=== PATIENT | female | born 1935 | race Caucasian/White ===

== ENCOUNTER 2016-11-18 11:31 | Emergency (ER) | payer MEDICARE, BC, MEDICAID ==
[2016-11-18] MEDS ORDERED: Ketorolac 30 MG/ML SDV IM ONE (12:37)
--- NOTE | 2016-11-18 12:41 | EDM.PDOC ---
ED HPI Trauma - General Chief Complaint: Lower Extremity Injury/Pain Stated Complaint: ON GOING LEG PAIN RIGHT SIDE Time Seen by Provider: 11/18/16 12:30 Source: Reports: Patient, Family, RN notes reviewed History Limitations: Reports: No limitations - History of Present Illness INITIAL COMMENTS - FREE TEXT/NARRATIVE: 81-year-old female presents emergency department today complaining of right hip pain, she has been evaluated by her primary care physician x-rays performed last week show narrowing of the joint space, has had pain medication and gabapentin and Ultram with minimal relief she states the pain has increasingly gotten worse and she does have shooting pains down into her foot the pain is located predominantly in her buttocks and the lateral aspect of her hip Allergies/ADRs: Allergies adhesive tape Allergy (Verified 11/18/16 12:01) Other hydrocodone [From Vicodin] Allergy (Verified 11/18/16 12:01) Other morphine Allergy (Verified 11/18/16 12:01) Hallucinations venom-honey bee [bee venom (honey bee)] Allergy (Verified 11/18/16 12:01) Anaphylactic Shock Home Medications: Ambulatory Orders Alendronate [Fosamax] 70 mg PO Q7D 04/21/14 [Confirmed 05/23/14] Donepezil HCl [Donepezil HCl] 10 mg PO DAILY 04/21/14 [Confirmed 05/23/14] Folic Acid [Folic Acid] 1 mg PO DAILY 04/21/14 [Confirmed 05/23/14] Iron,Carbonyl/Ascorbic Acid [Vitron-C Tablet] 1 tab PO TID 04/21/14 [Confirmed 05/23/14] Metoprolol Tartrate [Lopressor] 12.5 mg PO BID 04/21/14 [Confirmed 05/23/14] Mirtazapine [Remeron] 7.5 mg PO BEDTIME 04/21/14 [Confirmed 05/23/14] RABEprazole Sodium [Rabeprazole Sodium] 20 mg PO DAILY 04/21/14 [Confirmed 05/23] Simvastatin [Simvastatin] 20 mg PO BEDTIME 04/21/14 [Confirmed 05/23/14] Solifenacin [Vesicare] 10 mg PO DAILY 04/21/14 [Confirmed 05/23/14] metFORMIN [Glucophage] 500 mg PO BID 04/21/14 [Confirmed 05/23/14] Aspirin/Calcium Carbonate/Mag [Aspirin Buffered 325 mg Tab] 325 mg PO DAILY [Confirmed 05/23/14] Calcium Citrate/Vitamin D3 [Calcium Citrate + Caplet] 1 tab PO DAILY 05/23/14 [ Confirmed 05/23/14] Cholecalciferol (Vitamin D3) [Vitamin D3] 1 tab PO DAILY 05/23/14 [Confirmed ] Citalopram Hydrobromide [Celexa] 20 mg PO DAILY 05/23/14 [Confirmed 05/23/14] Multivitamin [One Daily Multivitamin] 1 tab CHEW BID 05/23/14 [Confirmed ] Vitamin B Complex 1 tab PO DAILY 05/23/14 [Confirmed 05/23/14] Iron,Carbonyl/Ascorbic Acid [Vitron-C Tablet] 1 tab PO DAILY 04/16/16 Magnesium Oxide [Magnesium] 400 mg PO DAILY 04/16/16 Cyanocobalamin (Vitamin B12) [Vitamin B12] 1,000 mcg SL DAILY 04/25/16 [ Confirmed 04/25/16] Memantine HCl [Namenda Xr] 21 mg PO DAILY 04/25/16 [Confirmed 04/25/16] Past Medical History HEENT History: Reports: Impaired vision Cardiovascular History: Reports: Heart valve replacement, Hypertension Respiratory History: Reports: Pneumonia, recurrent Gastrointestinal History: Reports: Other (see below) Other Gastrointestinal History: change in bowels recently Genitourinary History: Reports: UTI, recurrent 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: Musculoskeletal History: Reports: Arthritis, Back pain, chronic Neurological History: Reports: Vertigo Endocrine/Metabolic History: Reports: Diabetes, type II, Vitamin D deficiency Hematologic History: Reports: B12 deficiency, Folic acid - Infectious Disease History Infectious Disease History: Reports: Chicken pox, Herpes, Measles, Mumps - Past Surgical History Head Surgeries/Procedures: Reports: None HEENT Surgical History: Reports: None Cardiovascular Surgical History: Reports: Valve replacement Respiratory Surgical History: Reports: None GI Surgical History: Reports: Bariatric procedure, Colonoscopy Female Surgical History: Reports: None Endocrine Surgical History: Reports: None Neurological Surgical History: Reports: None Musculoskeletal Surgical History: Reports: Carpal tunnel Dermatological Surgical History: Reports: None Social & Family History - Tobacco Use Smoking Status *Q: Former Smoker Years of Tobacco use: 30 Packs/Tins Daily: 3 Used Tobacco, but Quit: Yes Month Tobacco Last Used: 08/1979 Second Hand Smoke Exposure: No - Alcohol Use Days Per Week of Alcohol Use: 0 - Recreational Drug Use Recreational Drug Use: No Review of Systems - Review of Systems Review Of Systems: See Below Constitutional: Denies: fever Eyes: Reports: no symptoms Ears: Reports: no symptoms Nose: Reports: no symptoms Mouth/Throat: Reports: no symptoms Respiratory: Reports: No Symptoms Cardiovascular: Reports: no symptoms GI/Abdominal: Reports: No symptoms Genitourinary: Reports: no symptoms Musculoskeletal: Reports: joint pain (Right hip) Neurological: Reports: Tingling (Right foot) Trauma Exam - Physical Exam Exam: See Below Text/Narrative:: Examination of the right hip she is tender to palpation over the greater trochanter on the right side as well as in the buttocks region right side I cannot elicit pain with flexion or extension of the hip or internal or external rotation. Examination of the back I cannot elicit any tenderness to palpation spine or paraspinally Exam Limited By: No limitations General Appearance: Reports: alert, WD/WN, no apparent distress Respiratory Exam: Reports: no respiratory distress Course - Vital Signs Last Recorded V/S: Last Vital Signs Temp 97.3 F 11/18/16 12:10 Pulse 68 11/18/16 14:02 Resp 16 11/18/16 14:02 BP 114/57 L 11/18/16 14:02 Pulse Ox 97 11/18/16 14:02 - Orders/Labs/Meds Labs: Laboratory Tests 11/18/16 11/18/16 11/18/16 Range/Units 12:43 12:43 12:43 WBC 4.8 (4.5-11.0) K/uL RBC 3.62 (3.30-5.50) M/uL Hgb 11.5 L (12.0-15.0) g/dL Hct 36.0 (36.0-48.0) % MCV 99 H (80-98) fL MCH 32 H (27-31) pg MCHC 32 (32-36) % Plt Count 173 (150-400) K/uL Neut % (Auto) 66 (36-66) % Lymph % (Auto) 21 L (24-44) % [place] % (Auto) 8 H (2-6) % Eos % (Auto) 4 (2-4) % Baso % (Auto) 1 (0-1) % ESR 14 (0-25) mm/hr Sodium (140-148) mmol/L Potassium (3.6-5.2) mmol/L Chloride (100-108) mmol/L Carbon Dioxide (21-32) mmol/L Anion Gap (5.0-14.0) mmol/L BUN (7-18) mg/dL Creatinine (0.6-1.0) mg/dL Est Cr Clr Drug Dosing mL/min Estimated GFR (MDRD) (>60) Glucose (74-106) mg/dL Calcium (8.5-10.1) mg/dL C-Reactive Protein 0.11 (0.0-0.3) mg/dL 11/18/16 Range/Units 12:43 WBC (4.5-11.0) K/uL RBC (3.30-5.50) M/uL Hgb (12.0-15.0) g/dL Hct (36.0-48.0) % MCV (80-98) fL MCH (27-31) pg MCHC (32-36) % Plt Count (150-400) K/uL Neut % (Auto) (36-66) % Lymph % (Auto) (24-44) % [place] % (Auto) (2-6) % Eos % (Auto) (2-4) % Baso % (Auto) (0-1) % ESR (0-25) mm/hr Sodium 145 (140-148) mmol/L Potassium 3.9 (3.6-5.2) mmol/L Chloride 106 (100-108) mmol/L Carbon Dioxide 30 (21-32) mmol/L Anion Gap 8.6 (5.0-14.0) mmol/L BUN 21 H (7-18) mg/dL Creatinine 0.7 (0.6-1.0) mg/dL Est Cr Clr Drug Dosing 56.27 mL/min Estimated GFR (MDRD) > 60 (>60) Glucose 93 (74-106) mg/dL Calcium 8.5 D (8.5-10.1) mg/dL C-Reactive Protein (0.0-0.3) mg/dL Meds: Medications Discontinued Medications Generic Name Dose Route Start Last Admin Trade Name Freq PRN Reason Stop Dose Admin Bupivacaine HCl 10 ml 03/27/17 13:49 11/18/16 15:03 Sensorcaine-Mpf 0.25% INJECT 11/18/16 13:50 10 ml ONETIME ONE Administration Ketorolac Tromethamine 30 mg 11/18/16 12:37 11/18/16 12:49 Toradol IM 11/18/16 12:38 30 mg ONETIME ONE Administration Triamcinolone Acetonide 40 mg 11/18/16 13:49 11/18/16 15:03 Kenalog-40 INJECT 11/18/16 13:50 40 mg ASDIRECTED PRN Administration Pain Triamcinolone Acetonide 40 mg 11/18/16 13:50 11/18/16 15:03 Kenalog-40 INJECT 11/18/16 13:51 40 mg ASDIRECTED PRN Administration Pain Departure - Departure Time of Disposition: 15:07 Disposition: Home, Self-Care 01 Condition: good Clinical Impression: Trochanteric bursitis, right hip Forms: ED Department Discharge Additional Instructions: please followup with your primary care provider within the next 7-10 days for reevaluation which may include an MRI of the right hip, call or return to the emergency department worsening of symptoms - Assessment/Plan Plan: Assessment Acuity = acute Site and laterality = right trochanteric bursitis Etiology = unclear etiology Manifestations = pain Location of injury = home Lab values = CBC, BMP, sedimentation rate, CRP within normal limits Plan consultants orthopedics Dr. Gordillo from orthopedics evaluated the patient in the ED provided a steroid injection please see his procedure note for details recommend she followup with primary care for MRI and further evaluation Patient was in agreement with the plan all questions were answered, they were instructed to return to the emergency department or call for worsening symptoms. This note was dictated using [employer] voice recognition software please call with any questions.
[2016-11-18] MEDS ORDERED: Triamcinolone Acetonide 40 MG/ML 1 ML MDV INJECT PRN ×2 (13:49→13:50)
[2016-11-18] MEDS ORDERED: Bupivacaine 0.25% 10 ML SDV INJECT ONE (13:49)
[2016-11-18 14:03] VITALS: BP 114/57
[2016-11-18] MEDS ORDERED: HYDROmorphone 1 MG/ML Syringe IM ONE (15:27)
--- NOTE | 2016-11-18 17:13 | PCM.CONS ---
H&P History of Present Illness - General Date of Service: 11/18/16 Source of Information: Patient History Limitations: Reports: No limitations - History of Present Illness Onset of Symptoms: Reports: gradual Location: Reports: lower extremity, right Quality: Reports: Ache, Burning, Dull, Pressure, Stabbing, Throbbing Severity: moderate Improves with: Reports: None Worsens with: Reports: Movement Right Hip Pain Score (Numeric/FACES): 10 - Related Data Allergies/Adverse Reactions: Allergies Allergy/AdvReac Type Severity Reaction Status Date / Time venom-honey bee Allergy Severe Anaphylactic Verified 11/18/16 15:09 [bee venom (honey bee)] Shock adhesive tape Allergy Other Verified 11/18/16 12:01 hydrocodone [From Vicodin] Allergy Other Verified 11/18/16 16:52 morphine Allergy Hallucinati Verified 11/18/16 12:01 ons Home Medications: Home Meds Alendronate [Fosamax] 70 mg PO Q7D 04/21/14 [History] Donepezil HCl [Donepezil HCl] 10 mg PO DAILY 04/21/14 [History] Folic Acid [Folic Acid] 1 mg PO DAILY 04/21/14 [History] Iron,Carbonyl/Ascorbic Acid [Vitron-C Tablet] 1 tab PO TID 04/21/14 [History] Metoprolol Tartrate [Lopressor] 12.5 mg PO BID 04/21/14 [History] Mirtazapine [Remeron] 7.5 mg PO BEDTIME 04/21/14 [History] RABEprazole Sodium [Rabeprazole Sodium] 20 mg PO DAILY 04/21/14 [History] Simvastatin [Simvastatin] 20 mg PO BEDTIME 04/21/14 [History] Solifenacin [Vesicare] 10 mg PO DAILY 04/21/14 [History] metFORMIN [Glucophage] 500 mg PO BID 04/21/14 [History] Aspirin/Calcium Carbonate/Mag [Aspirin Buffered 325 mg Tab] 325 mg PO DAILY [History] Calcium Citrate/Vitamin D3 [Calcium Citrate + Caplet] 1 tab PO DAILY 05/23/14 [ History] Cholecalciferol (Vitamin D3) [Vitamin D3] 1 tab PO DAILY 05/23/14 [History] Citalopram Hydrobromide [Celexa] 20 mg PO DAILY 05/23/14 [History] Multivitamin [One Daily Multivitamin] 1 tab CHEW BID 05/23/14 [History] Vitamin B Complex 1 tab PO DAILY 05/23/14 [History] Iron,Carbonyl/Ascorbic Acid [Vitron-C Tablet] 1 tab PO DAILY 04/16/16 [History] Magnesium Oxide [Magnesium] 400 mg PO DAILY 04/16/16 [History] Cyanocobalamin (Vitamin B12) [Vitamin B12] 1,000 mcg SL DAILY 04/25/16 [History] Memantine HCl [Namenda Xr] 21 mg PO DAILY 04/25/16 [History] Past Medical History HEENT History: Reports: Impaired vision Cardiovascular History: Reports: Heart valve replacement, Hypertension Respiratory History: Reports: Pneumonia, recurrent Gastrointestinal History: Reports: Other (see below) Other Gastrointestinal History: change in bowels recently Genitourinary History: Reports: UTI, recurrent 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: Musculoskeletal History: Reports: Arthritis, Back pain, chronic Neurological History: Reports: Vertigo Endocrine/Metabolic History: Reports: Diabetes, type II, Vitamin D deficiency Hematologic History: Reports: B12 deficiency, Folic acid - Infectious Disease History Infectious Disease History: Reports: Chicken pox, Herpes, Measles, Mumps - Past Surgical History Head Surgeries/Procedures: Reports: None HEENT Surgical History: Reports: None Cardiovascular Surgical History: Reports: Valve replacement Respiratory Surgical History: Reports: None GI Surgical History: Reports: Bariatric procedure, Colonoscopy Female Surgical History: Reports: None Endocrine Surgical History: Reports: None Neurological Surgical History: Reports: None Musculoskeletal Surgical History: Reports: Carpal tunnel Dermatological Surgical History: Reports: None Social & Family History - Tobacco Use Smoking Status *Q: Former Smoker Years of Tobacco use: 30 Packs/Tins Daily: 3 Used Tobacco, but Quit: Yes Month Tobacco Last Used: 08/1979 Second Hand Smoke Exposure: No - Alcohol Use Days Per Week of Alcohol Use: 0 - Recreational Drug Use Recreational Drug Use: No H&P Review of Systems - Review of Systems: Review Of Systems: See Below General: Reports: no symptoms HEENT: Reports: no symptoms Pulmonary: Reports: No Symptoms Cardiovascular: Reports: no symptoms Gastrointestinal: Reports: No symptoms Genitourinary: Reports: no symptoms Musculoskeletal: Reports: joint pain, joint swelling, muscle pain, muscle stiffness Skin: Reports: no symptoms Psychiatric: Reports: no symptoms Neurological: Reports: No Symptoms Hematologic/Lymphatic: Reports: no symptoms Immunologic: Reports: no symptoms Exam - Exam Exam: See Below - Vital Signs Vital Signs: Last Vital Signs Temp 97.3 F 11/18/16 12:10 Pulse 68 11/18/16 14:02 Resp 16 11/18/16 14:02 BP 114/57 L 11/18/16 14:02 Pulse Ox 97 11/18/16 14:02 Weight: 126 lb - Exam General: alert, oriented HEENT: PERRLA, Conjunctiva clear, EACs clear Neck: supple, trachea midline Extremities: normal inspection Peripheral Pulses: 2+: dorsalis pedis (R) Skin: warm, dry, intact Neuro Extensive - Mental Status: alert, oriented x3 Psychiatric: alert Physical Exam Comments:: physical examination of right lower extremity shows point tenderness to palpation over the right greater trochanter.the patient also states that she does have pain from time to time radiating down the right leg. - Patient Data Lab Results last 24 hrs: Laboratory Results - last 24 hr 11/18/16 11/18/16 11/18/16 Range/Units 12:43 12:43 12:43 WBC 4.8 (4.5-11.0) K/uL RBC 3.62 (3.30-5.50) M/uL Hgb 11.5 L (12.0-15.0) g/dL Hct 36.0 (36.0-48.0) % MCV 99 H (80-98) fL MCH 32 H (27-31) pg MCHC 32 (32-36) % Plt Count 173 (150-400) K/uL Neut % (Auto) 66 (36-66) % Lymph % (Auto) 21 L (24-44) % [place] % (Auto) 8 H (2-6) % Eos % (Auto) 4 (2-4) % Baso % (Auto) 1 (0-1) % ESR 14 (0-25) mm/hr Sodium (140-148) mmol/L Potassium (3.6-5.2) mmol/L Chloride (100-108) mmol/L Carbon Dioxide (21-32) mmol/L Anion Gap (5.0-14.0) mmol/L BUN (7-18) mg/dL Creatinine (0.6-1.0) mg/dL Est Cr Clr Drug Dosing mL/min Estimated GFR (MDRD) (>60) Glucose (74-106) mg/dL Calcium (8.5-10.1) mg/dL C-Reactive Protein 0.11 (0.0-0.3) mg/dL 11/18/16 Range/Units 12:43 WBC (4.5-11.0) K/uL RBC (3.30-5.50) M/uL Hgb (12.0-15.0) g/dL Hct (36.0-48.0) % MCV (80-98) fL MCH (27-31) pg MCHC (32-36) % Plt Count (150-400) K/uL Neut % (Auto) (36-66) % Lymph % (Auto) (24-44) % [place] % (Auto) (2-6) % Eos % (Auto) (2-4) % Baso % (Auto) (0-1) % ESR (0-25) mm/hr Sodium 145 (140-148) mmol/L Potassium 3.9 (3.6-5.2) mmol/L Chloride 106 (100-108) mmol/L Carbon Dioxide 30 (21-32) mmol/L Anion Gap 8.6 (5.0-14.0) mmol/L BUN 21 H (7-18) mg/dL Creatinine 0.7 (0.6-1.0) mg/dL Est Cr Clr Drug Dosing 56.27 mL/min Estimated GFR (MDRD) > 60 (>60) Glucose 93 (74-106) mg/dL Calcium 8.5 D (8.5-10.1) mg/dL C-Reactive Protein (0.0-0.3) mg/dL Result Diagrams: 11/18/16 12:43 11/18/16 12:43 Consult PN Assessment/Plan Procedures: Procedures AIRWAY INHALATION TREATMENT (05/23/14) ASSAY OF AMYLASE (04/21/14) C-REACTIVE PROTEIN (05/23/14) CARDIAC REHAB/MONITOR (03/25/14) CHEST X-RAY 2VW FRONTAL&LATL (10/06/15) COMPLETE CBC W/AUTO DIFF WBC (02/08/15) COMPREHEN METABOLIC PANEL (02/08/15) CT ABD & PELV W/CONTRAST (04/21/14) DIAGNOSTIC COLONOSCOPY (04/25/16) EMERGENCY DEPT VISIT (05/23/14) METABOLIC PANEL TOTAL CA (07/07/15) ROUTINE VENIPUNCTURE (02/08/15) TTE W/DOPPLER COMPLETE (09/25/15) URINALYSIS AUTO W/SCOPE (05/23/14) X-RAY EXAM HIP UNI 2-3 VIEWS (11/15/16) X-RAY EXAM L-S SPINE 2/3 VWS (10/31/16) X-RAY EXAM OF ABDOMEN (04/21/14) X-RAY EXAM SACRUM TAILBONE (09/12/14) X-RAY EXAM THORAC SPINE 3VWS (07/07/15) Problem List Initiated/Reviewed/Updated: Yes Plan: I went ahead and injected her right greater trochanteric bursa. She tolerated this well.80 mg of Kenalog and 3 mL of Marcaine were injected. Aseptic technique was used. Ethyl chloride was used. An adhesive bandage was used. The patient tolerated the procedure well. I've advised the patient's family that if she is having radicular pain which may be associated with stenosis that she should see her family physician for workup. This may include physical therapy, injections, or further imaging. I' ve advised the family that I would need an MRI to see her in the clinic for her back.
== END 2016-11-18 16:45 | disposition home or self-care (01) ==
LOC: JP.ED 11:31
DX: M70.61 Trochanteric bursitis, right hip (principal); I10 Essential (primary) hypertension; E11.9 Type 2 diabetes mellitus without complications; Z98.84 Bariatric surgery status; Z95.2 Presence of prosthetic heart valve; Z98.890 Other specified postprocedural states; Z79.82 Long term (current) use of aspirin; Z79.899 Other long term (current) drug therapy; Z88.5 Allergy status to narcotic agent; Z91.030 Bee allergy status; Z91.048 Other nonmedicinal substance allergy status; Z87.891 Personal history of nicotine dependence
CPT/HCPCS: 36415; 80048; 85025; 85651; 86140; 96372; 99283; 99284; J1170; J1885; J3301